=== PATIENT | male | born 1940 | race African-American/Black ===

== ENCOUNTER 2023-07-18 20:37 | Emergency (ER) | payer MEDICARE ==
[~2023-07-18] VITALS: Ht 167.6 cm; Wt 87.7 kg
[2023-07-18 21:02] VITALS: TEMP 98.3
[2023-07-18 21:54] LABS: BASO % 0.5 % (0.0-2.0); EOS # 0.1 K/mm3 (0.0-0.7); EOS % 1.1 % (0.0-4.0); GRAN # 3.8 K/mm3 (1.4-6.5); GRAN % 61.3 % (42.2-75.2); HEMATOCRIT 37.9 % (42.0-52.0); HEMOGLOBIN 12.1 g/dl (13.5-18.0); LYMPH # 1.1 K/mm3 (1.2-3.4); LYMPH % 17.7 % (20.0-51.0); MEAN CELL VOLUME 93 fl (80.0-100.0); MEAN CORPUSCULAR HEMOGLOBIN 30 pg (27-31); MEAN CORPUSCULAR HGB CONC 32 g/dl (33.0-37.0); MEAN PLATELET VOLUME 10.5 fl (7.4-10.4); MONO # 1.2 K/mm3 (0.1-0.6); MONO % 19.2 % (1.7-9.3); PLATELET COUNT 186 K/mm3 (130-400); RED BLOOD COUNT 4.09 M/mm3 (4.20-5.60); REDCELL DISTRIBUTION WIDTH-CV 13.4 % (11.5-14.5)
[2023-07-18 22:16] LABS: ALBUMIN 3.4 gm/dL (3.4-4.8); BILIRUBIN,TOTAL 0.2 mg/dL (0.2-1.2); CREATININE, serum 2.05 mg/dL (0.72-1.25); POTASSIUM 4.2 mmol/L (3.5-4.5); TOTAL PROTEIN 6.1 gm/dL (6.2-8.1)
[2023-07-18 23:29] LABS: URINE APPEARANCE CLOUDY (CLEAR/HAZY); URINE BLOOD 1+ (NEGATIVE); URINE COLOR YELLOW (YELLOW); URINE GLUCOSE NEGATIVE (NEGATIVE); URINE KETONE TRACE (NEGATIVE); URINE NITRATE NEGATIVE (NEGATIVE); URINE PROTEIN(semi-quant) 1+ (NEGATIVE)
[2023-07-18 23:45] LABS: COLLECTION METHOD CLEAN CATCH; URINE WBC 0-2 /hpf (0-2)
[2023-07-18 23:46] LABS: MUCOUS PRESENT (NOT PRESENT); URINE BACTERIA RARE /hpf (NONE SEEN)
[2023-07-19] VITALS: BP 130/83; PULSE 89
== END 2023-07-19 | disposition home or self-care (01) ==
LOC: COL.ER 20:37
PROVIDERS: Emergency Medicine
DX: R53.1 Weakness (principal); C61 Malignant neoplasm of prostate; C79.51 Secondary malignant neoplasm of bone; E11.9 Type 2 diabetes mellitus without complications; R79.89 Other specified abnormal findings of blood chemistry